=== PATIENT | female | born 1930 | race Caucasian/White ===

== ENCOUNTER 2017-08-15 00:01 | Inpatient (IN) | payer MEDICARE, MEDICAID ==
[2017-08-15] VITALS (32 sets, daily range): BP systolic 79–184; BP diastolic 25–89
[~2017-08-15] VITALS: Ht 172.7 cm; Wt 78.9 kg
[~2017-08-15 00:01] MED LIST: ACET650T11 PO; ATOR20TA PO; BISA10SU12 RC; BUSPAR PO; CALAZIME TOP; CALC1TAB50 PO; CHOL10005 PO; DILT240C88 PO; DIVA250T4 PO; DONE5TAB PO; ECON15CR2 TP; ESCI5TAB PO; FOLI1TAB16 PO; HYDR-3326 PO; IPRA3AMP IH; LEVA1.2528 IH; LEVE500T9 PO; LORA-258 PO; MAGN400O6 PO; NYST500P PO; ONDA4TAB5 PO; PANT40TA2 PO; POLY17PO4 PO; RIVA15TA2 PO; TAMS0.4C34 PO; VALS160T2 PO
[2017-08-15] MEDS ORDERED: MAGN400O6 PO (00:26)
[2017-08-15] MEDS ORDERED: MULT1TAB11 PO (00:26)
[2017-08-15] MEDS ORDERED: TRAM50TA2 PO (00:26)
[2017-08-15] MEDS ORDERED: BUSP10TA3 PO (00:26)
[2017-08-15] MEDS ORDERED: LEVE500T9 PO (00:26)
[2017-08-15] MEDS ORDERED: LORA-258 PO (00:26)
[2017-08-15] MEDS ORDERED: ACET-2154 PO (00:26)
[2017-08-15] MEDS ORDERED: IPRA0.2S6 PO (00:26)
[2017-08-15] MEDS ORDERED: CRAN425C6 PO (00:26)
[2017-08-15] MEDS ORDERED: ENOX40DI SQ (00:26)
[2017-08-15] MEDS ORDERED: FURO-151 PO (00:26)
[2017-08-15] MEDS ORDERED: DIGO125T PO (00:26)
[2017-08-15] MEDS ORDERED: DOCU100C36 PO (00:26)
[2017-08-15] MEDS ORDERED: POTA-88 PO (00:26)
[2017-08-15] MEDS ORDERED: PANT40TA2 PO (00:26)
[2017-08-15] MEDS: PROPOFOL 100 ML IV PRN ×3 (00:55→16:52)
[2017-08-15] MEDS ORDERED: ENALAPRILAT DIHYDRATE 1.25 MG/1 ML VIAL IV ONE (01:00)
[2017-08-15] MEDS ORDERED: ETOMIDATE 20 MG/10 ML VIAL IV ONE (01:00)
[2017-08-15] MEDS ORDERED: NITROGLYCERIN OINT 1 GM PACKET TP ONE (01:00)
[2017-08-15] MEDS ORDERED: PROPOFOL 100 ML ONE ×2 (01:06→05:01)
[2017-08-15 01:29] LABS: BASOPHILS # (AUTO) 0.1 K/uL (0.0-8.0); BASOPHILS % (AUTO) 1.1 % (0.0-2.0); EOSINOPHILS # (AUTO) 0.1 K/uL (0.0-0.7); EOSINOPHILS % (AUTO) 1.5 % (0.0-7.0); HEMATOCRIT 36.7 % (31.2-41.9); LYMPHOCYTES # (AUTO) 0.9 K/uL (20.0-40.0); LYMPHOCYTES % (AUTO) 9.6 % (20.5-51.5); MEAN CORPUSCULAR HEMOGLOBIN 27.3 uug (24.7-32.8); MEAN CORPUSCULAR HGB CONC 33 g/dL (32.3-35.6); MEAN CORPUSCULAR VOLUME 83.3 fL (75.5-95.3); MONOCYTES # (AUTO) 0.6 K/uL (2.0-10.0); MONOCYTES % (AUTO) 6.7 % (0.0-11.0); NEUTROPHILS # (AUTO) 7.4 K/uL (1.8-8.9); NEUTROPHILS % (AUTO) 81.1 % (38.5-71.5); PLATELET COUNT (AUTO) 323 K/uL (179-408); WHITE BLOOD COUNT (AUTO) 9.1 K/uL (3.8-11.8)
[2017-08-15 01:31] LABS: ABG BASE EXCESS 3.2 mmol/L; ABG HCO3 28.7 mmol/L; ABG PH 7.395 (7.350-7.450); ABG PO2 288.8 mmHg (75.0-100.0); ABG SITE RIGHT BRACHIAL; ABG TOTAL HEMOGLOBIN 11.1 G/dL (12.0-16.0); MetHb 0.3 % (0.0-1.5); O2Hb 98.5 % (94.0-97.0); VENT MODE VENT - A/C; VT, ABG 500 mL
[2017-08-15 01:31] LABS: CARBON DIOXIDE 34 mmol/L (21-32); CHLORIDE 102 mmol/L (98-107); GLUCOSE 148 mg/dL (74-106); POTASSIUM 4.4 mmol/L (3.5-5.1); UREA NITROGEN, BLOOD 14 mg/dL (7-18)
[2017-08-15 01:46] LABS: ALANINE AMINOTRANSFERASE 12 U/L (14-59); ALKALINE PHOSPHATASE 82 U/L (50-136); ASPARTATE AMINOTRANSFERASE 22 U/L (15-37); BILIRUBIN,DIRECT 0.1 mg/dL (0.0-0.2); BILIRUBIN,TOTAL 0.3 mg/dL (0.2-1.0); TOTAL PROTEIN, SERUM 7.9 g/dL (6.4-8.2)
[2017-08-15] MEDS ORDERED: NORMAL SALINE FLUSH 10 ML DISP.SYRIN IV PRN (04:00)
[2017-08-15] MEDS: methylPREDNISolone SOD SUCC 40 MG/ML VIAL IV SCH ×3 (04:20→20:39)
[2017-08-15] MEDS ORDERED: methylPREDNISolone SOD SUCC 40 MG/ML VIAL ONE (04:32)
[2017-08-15] MEDS: FUROSEMIDE 40 MG/4 ML VIAL IV SCH ×3 (05:51→20:44)
[2017-08-15] MEDS ORDERED: FUROSEMIDE 40 MG/4 ML VIAL ONE (05:55)
[2017-08-15] MEDS: NORMAL SALINE FLUSH 10 ML DISP.SYRIN IV SCH ×3 (06:00→21:35)
[2017-08-15 06:01] LABS: ABG BASE EXCESS 5.5 mmol/L; ABG HCO3 28.6 mmol/L; ABG PCO2 36.2 mmHg (35.0-45.0); ABG PH 7.515 (7.350-7.450); ABG PO2 138.2 mmHg (75.0-100.0); ABG SITE RIGHT RADIAL; ABG TOTAL HEMOGLOBIN 11.2 G/dL (12.0-16.0); COHb 0.8 % (0.5-1.5); MetHb 0.3 % (0.0-1.5); O2Hb 98.1 % (94.0-97.0); VENT MODE VENT - A/C; VT, ABG 500 mL
[2017-08-15 06:33] LABS: BASOPHILS % (AUTO) 0.3 % (0.0-2.0); EOSINOPHILS # (AUTO) 0.1 K/uL (0.0-0.7); EOSINOPHILS % (AUTO) 1.3 % (0.0-7.0); HEMATOCRIT 32.9 % (31.2-41.9); HEMOGLOBIN 10.9 g/dL (10.9-14.3); LYMPHOCYTES # (AUTO) 0.6 K/uL (20.0-40.0); LYMPHOCYTES % (AUTO) 5.6 % (20.5-51.5); MEAN CORPUSCULAR HEMOGLOBIN 27.1 uug (24.7-32.8); MEAN CORPUSCULAR HGB CONC 33 g/dL (32.3-35.6); MONOCYTES # (AUTO) 0.6 K/uL (2.0-10.0); MONOCYTES % (AUTO) 5.3 % (0.0-11.0); NEUTROPHILS # (AUTO) 9.5 K/uL (1.8-8.9); NEUTROPHILS % (AUTO) 87.5 % (38.5-71.5); PLATELET COUNT (AUTO) 267 K/uL (179-408); RED BLOOD CELL COUNT(AUTO) 4.02 MIL/uL (3.63-4.92); WHITE BLOOD COUNT (AUTO) 10.9 K/uL (3.8-11.8)
[2017-08-15 06:42] LABS: ALANINE AMINOTRANSFERASE 12 U/L (14-59); ALKALINE PHOSPHATASE 71 U/L (50-136); ASPARTATE AMINOTRANSFERASE 18 U/L (15-37); BILIRUBIN,TOTAL 0.5 mg/dL (0.2-1.0); CARBON DIOXIDE 27 mmol/L (21-32); CHLORIDE 103 mmol/L (98-107); CREATININE 0.9 mg/dL (0.6-1.3); GLUCOSE 120 mg/dL (74-106); MAGNESIUM 1.8 mg/dL (1.8-2.4); PHOSPHOROUS 3.3 mg/dL (2.5-4.9); POTASSIUM 4.4 mmol/L (3.5-5.1); TOTAL PROTEIN, SERUM 7.1 g/dL (6.4-8.2); UREA NITROGEN, BLOOD 15 mg/dL (7-18)
[2017-08-15] MEDS ORDERED: Z GUARD REMEDY PASTE 57 GM TUBE TOP PRN (06:45)
[2017-08-15] MEDS ORDERED: DIVALPROEX 250 MG TABLET.DR PO SCH (08:00)
[2017-08-15] MEDS ORDERED: HYDROCODONE/APAP 5-325MG TABLET PO PRN (08:00)
[2017-08-15] MEDS ORDERED: LEVALBUTEROL HCL 1.25 MG/0.5 ML NEB NEB PRN (08:00)
[2017-08-15] MEDS ORDERED: LORAZEPAM 0.5 MG TABLET PO PRN (08:00)
[2017-08-15] MEDS ORDERED: MAGNESIUM HYDROXIDE 30 ML LIQUID UDC PO PRN ×2 (08:00)
[2017-08-15] MEDS ORDERED: TRAMADOL HCL 50 MG TABLET PO PRN (08:00)
[2017-08-15] MEDS ORDERED: HOME MED MISCELLANEOUS XX SCH (08:00)
[2017-08-15] MEDS ORDERED: BISACODYL 10 MG SUPP.RECT RC PRN (08:00)
[2017-08-15] MEDS ORDERED: ONDANSETRON HCL 4 MG TABLET PO PRN (08:00)
[2017-08-15] MEDS ORDERED: ALBUTEROL SULFATE 2.5 MG/ 0.5 ML NEBU NEB PRN (08:30)
[2017-08-15] MEDS: PANTOPRAZOLE SODIUM 40 MG VIAL IV SCH (08:39)
[2017-08-15] MEDS ORDERED: NYSTATIN POWDER 15 GM BOTTLE TOP SCH (09:00)
[2017-08-15] MEDS ORDERED: LEVETIRACETAM 500 MG TABLET PO SCH (09:00)
[2017-08-15] MEDS: MULTIVITAMINS,THERAPEUTIC TABLET PO SCH (09:00)
[2017-08-15] MEDS: DOCUSATE SODIUM 100 MG CAPSULE PO SCH ×2 (09:00→20:40)
[2017-08-15] MEDS ORDERED: CALCIUM CARB/VITAMIN D 500MG-200UNITS TABLET PO SCH (09:00)
[2017-08-15] MEDS ORDERED: CHOLECALCIFEROL 1,000 UNIT TABLET PO SCH (09:00)
[2017-08-15] MEDS ORDERED: ESCITALOPRAM OXALATE 10 MG TABLET PO SCH (09:00)
[2017-08-15] MEDS ORDERED: FOLIC ACID 1 MG TABLET PO SCH (09:00)
[2017-08-15] MEDS: busPIRone 10 MG TABLET PO SCH ×2 (09:00→16:48)
[2017-08-15] MEDS ORDERED: DILTIAZEM HCL CD 240 MG CAP.SR.24H PO SCH (09:00)
[2017-08-15] MEDS ORDERED: ENOXAPARIN SODIUM 40 MG/0.4 ML DISP.SYRIN SQ SCH (09:00)
[2017-08-15] MEDS ORDERED: busPIRone 10 MG TABLET PO SCH (09:00)
[2017-08-15] MEDS ORDERED: ACETAMINOPHEN 325 MG TABLET PO SCH (09:00)
[2017-08-15] MEDS: Z GUARD REMEDY PASTE 57 GM TUBE TOP SCH ×2 (09:57→20:40)
[2017-08-15] MEDS: ENOXAPARIN SODIUM 40 MG/0.4 ML DISP.SYRIN SQ SCH (10:00)
[2017-08-15] MEDS: LEVETIRACETAM IV SCH ×2 (10:01→20:39)
[2017-08-15] MEDS: NORMAL SALINE IV SCH ×2 (10:01→20:39)
[2017-08-15] MEDS ORDERED: VALPROATE SODIUM IV SCH (11:00)
[2017-08-15] MEDS ORDERED: NORMAL SALINE IV SCH (11:00)
[2017-08-15] MEDS ORDERED: ETOMIDATE 20 MG/10 ML VIAL MC ONE (11:08)
[2017-08-15] MEDS ORDERED: IPRATROPIUM BROMIDE 0.5 MG/2.5 ML NEBU NEB SCH (13:30)
[2017-08-15] MEDS: IPRATROPIUM BROMIDE 0.5 MG/2.5 ML NEBU NEB SCH (19:27)
[2017-08-15] MEDS: DIGOXIN 125 MCG TABLET PO SCH (20:41)
[2017-08-15] MEDS ORDERED: TAMSULOSIN HCL 0.4 MG CAP.SR.24H PO SCH (21:00)
[2017-08-15] MEDS ORDERED: ATORVASTATIN 20 MG TABLET PO SCH (21:00)
[2017-08-15] MEDS ORDERED: DONEPEZIL 5 MG TABLET PO SCH (21:00)
[2017-08-15] MEDS ORDERED: MIRALAX 17 GM POWD.PACK PO SCH (21:00)
[2017-08-15] MEDS ORDERED: IV NORMAL SALINE 250 ML IV PRN (23:15)
[2017-08-16] VITALS (24 sets, daily range): BP systolic 91–168; BP diastolic 42–87
[2017-08-16] MEDS: IPRATROPIUM BROMIDE 0.5 MG/2.5 ML NEBU NEB SCH ×4 (00:58→19:10)
[2017-08-16 05:23] LABS: CARBON DIOXIDE 32 mmol/L (21-32); CHLORIDE 102 mmol/L (98-107); CREATININE 1.3 mg/dL (0.6-1.3); GLUCOSE 128 mg/dL (74-106); MAGNESIUM 1.8 mg/dL (1.8-2.4); UREA NITROGEN, BLOOD 24 mg/dL (7-18)
[2017-08-16 05:26] LABS: BASOPHILS % (AUTO) 0.4 % (0.0-2.0); EOSINOPHILS % (AUTO) 0.1 % (0.0-7.0); HEMATOCRIT 35.7 % (31.2-41.9); HEMOGLOBIN 11.7 g/dL (10.9-14.3); LYMPHOCYTES # (AUTO) 0.9 K/uL (20.0-40.0); MEAN CORPUSCULAR HGB CONC 33 g/dL (32.3-35.6); MEAN CORPUSCULAR VOLUME 82.6 fL (75.5-95.3); MONOCYTES # (AUTO) 0.6 K/uL (2.0-10.0); MONOCYTES % (AUTO) 6.6 % (0.0-11.0); NEUTROPHILS # (AUTO) 7.7 K/uL (1.8-8.9); NEUTROPHILS % (AUTO) 82.9 % (38.5-71.5); PLATELET COUNT (AUTO) 318 K/uL (179-408); RED BLOOD CELL COUNT(AUTO) 4.32 MIL/uL (3.63-4.92); WHITE BLOOD COUNT (AUTO) 9.2 K/uL (3.8-11.8)
[2017-08-16] MEDS: NORMAL SALINE FLUSH 10 ML DISP.SYRIN IV SCH ×3 (05:40→21:42)
[2017-08-16] MEDS: PROPOFOL 100 ML IV PRN (06:37)
[2017-08-16] MEDS: PANTOPRAZOLE SODIUM 40 MG VIAL IV SCH (06:50)
[2017-08-16] MEDS: DOCUSATE SODIUM 100 MG CAPSULE PO SCH ×2 (08:19→20:22)
[2017-08-16] MEDS: busPIRone 10 MG TABLET PO SCH ×2 (08:19→16:08)
[2017-08-16] MEDS: DIGOXIN 125 MCG TABLET PO SCH (08:20)
[2017-08-16] MEDS: MULTIVITAMINS,THERAPEUTIC TABLET PO SCH (08:21)
[2017-08-16] MEDS: ECONAZOLE CREAM 30 GM TUBE TOP SCH (08:22)
[2017-08-16] MEDS: Z GUARD REMEDY PASTE 57 GM TUBE TOP SCH ×2 (08:22→20:24)
[2017-08-16] MEDS: methylPREDNISolone SOD SUCC 40 MG/ML VIAL IV SCH ×3 (08:23→20:22)
[2017-08-16] MEDS: FUROSEMIDE 40 MG/4 ML VIAL IV SCH ×3 (08:23→20:22)
[2017-08-16] MEDS: ENOXAPARIN SODIUM 40 MG/0.4 ML DISP.SYRIN SQ SCH (08:25)
[2017-08-16] MEDS: LEVETIRACETAM IV SCH ×2 (08:39→11:36)
[2017-08-16] MEDS: NORMAL SALINE IV SCH ×2 (08:39→11:36)
[2017-08-16 09:19] LABS: ABG BASE EXCESS 4.2 mmol/L; ABG HCO3 28.2 mmol/L; ABG PH 7.466 (7.350-7.450); ABG PO2 105.7 mmHg (75.0-100.0); ABG SITE RIGHT RADIAL; ABG TOTAL HEMOGLOBIN 11.3 G/dL (12.0-16.0); CPAP,BG 8 cmH20; MetHb 0.3 % (0.0-1.5); O2Hb 96.8 % (94.0-97.0); VENT MODE CPAP
[2017-08-16] MEDS: ALBUTEROL SULFATE 2.5 MG/3 ML NEBU NEB PRN (13:28)
[2017-08-16] MEDS: ACETAMINOPHEN 325 MG TABLET PO PRN (18:09)
[2017-08-16] MEDS: LORAZEPAM 0.5 MG TABLET PO PRN (18:43)
[2017-08-16] MEDS: TRAMADOL HCL 50 MG TABLET PO PRN (20:23)
[2017-08-16] MEDS: LEVETIRACETAM 500 MG TABLET PO SCH (20:23)
[2017-08-17] VITALS (16 sets, daily range): BP systolic 99–120; BP diastolic 48–77
[2017-08-17] MEDS: IPRATROPIUM BROMIDE 0.5 MG/2.5 ML NEBU NEB SCH ×4 (00:41→19:51)
[2017-08-17] MEDS: LORAZEPAM 0.5 MG TABLET PO PRN ×3 (01:50→17:36)
[2017-08-17] MEDS: TRAMADOL HCL 50 MG TABLET PO PRN ×2 (01:51→11:39)
[2017-08-17] MEDS: PANTOPRAZOLE SODIUM 40 MG VIAL IV SCH (06:03)
[2017-08-17] MEDS: NORMAL SALINE FLUSH 10 ML DISP.SYRIN IV SCH ×3 (06:03→22:00)
[2017-08-17] MEDS: ALBUTEROL SULFATE 2.5 MG/3 ML NEBU NEB PRN (06:19)
[2017-08-17] MEDS: ENOXAPARIN SODIUM 40 MG/0.4 ML DISP.SYRIN SQ SCH (08:46)
[2017-08-17] MEDS: FUROSEMIDE 40 MG/4 ML VIAL IV SCH (08:46)
[2017-08-17] MEDS: LEVETIRACETAM 500 MG TABLET PO SCH ×2 (08:47→20:53)
[2017-08-17] MEDS: MULTIVITAMINS,THERAPEUTIC TABLET PO SCH (08:47)
[2017-08-17] MEDS: DOCUSATE SODIUM 100 MG CAPSULE PO SCH ×2 (08:47→20:53)
[2017-08-17] MEDS: DIGOXIN 125 MCG TABLET PO SCH (08:47)
[2017-08-17] MEDS: ECONAZOLE CREAM 30 GM TUBE TOP SCH (08:50)
[2017-08-17] MEDS: Z GUARD REMEDY PASTE 57 GM TUBE TOP SCH ×2 (08:50→20:53)
[2017-08-17] MEDS: methylPREDNISolone SOD SUCC 40 MG/ML VIAL IV SCH ×2 (08:56→20:53)
[2017-08-17] MEDS: busPIRone 10 MG TABLET PO SCH ×2 (08:57→17:20)
[2017-08-17] MEDS: RIVAROXABAN 15 MG TABLET PO SCH (17:21)
[2017-08-17] MEDS: HYDROCODONE/APAP 5-325MG TABLET PO PRN (18:11)
[2017-08-17] MEDS: ALBUTEROL SULFATE 2.5 MG/3 ML NEBU NEB SCH (19:51)
[2017-08-18] VITALS: BP 113/59
[2017-08-18 04:00] VITALS: BP 121/58
[2017-08-18] MEDS: NORMAL SALINE FLUSH 10 ML DISP.SYRIN IV SCH ×3 (05:54→21:06)
[2017-08-18] MEDS: PANTOPRAZOLE SODIUM 40 MG TABLET.DR PO SCH (06:00)
[2017-08-18 06:32] LABS: BASOPHILS % (AUTO) 0.2 % (0.0-2.0); EOSINOPHILS % (AUTO) 0.1 % (0.0-7.0); HEMATOCRIT 33.4 % (31.2-41.9); HEMOGLOBIN 10.9 g/dL (10.9-14.3); LYMPHOCYTES # (AUTO) 0.8 K/uL (20.0-40.0); LYMPHOCYTES % (AUTO) 9.8 % (20.5-51.5); MEAN CORPUSCULAR HEMOGLOBIN 26.8 uug (24.7-32.8); MEAN CORPUSCULAR HGB CONC 33 g/dL (32.3-35.6); MEAN CORPUSCULAR VOLUME 82.2 fL (75.5-95.3); MONOCYTES # (AUTO) 0.5 K/uL (2.0-10.0); MONOCYTES % (AUTO) 6.6 % (0.0-11.0); NEUTROPHILS # (AUTO) 6.4 K/uL (1.8-8.9); NEUTROPHILS % (AUTO) 83.3 % (38.5-71.5); PLATELET COUNT (AUTO) 255 K/uL (179-408); RED BLOOD CELL COUNT(AUTO) 4.06 MIL/uL (3.63-4.92); WHITE BLOOD COUNT (AUTO) 7.7 K/uL (3.8-11.8)
[2017-08-18 06:48] LABS: ALANINE AMINOTRANSFERASE 9 U/L (14-59); ALKALINE PHOSPHATASE 78 U/L (50-136); ASPARTATE AMINOTRANSFERASE 15 U/L (15-37); BILIRUBIN,TOTAL 0.3 mg/dL (0.2-1.0); CARBON DIOXIDE 36 mmol/L (21-32); CHLORIDE 98 mmol/L (98-107); CREATININE 0.8 mg/dL (0.6-1.3); GLUCOSE 105 mg/dL (74-106); MAGNESIUM 1.9 mg/dL (1.8-2.4); PHOSPHOROUS 2.2 mg/dL (2.5-4.9); POTASSIUM 4.7 mmol/L (3.5-5.1); TOTAL PROTEIN, SERUM 7.1 g/dL (6.4-8.2); UREA NITROGEN, BLOOD 25 mg/dL (7-18)
[2017-08-18] MEDS: IPRATROPIUM BROMIDE 0.5 MG/2.5 ML NEBU NEB SCH ×3 (07:23→19:39)
[2017-08-18] MEDS: ALBUTEROL SULFATE 2.5 MG/3 ML NEBU NEB SCH ×3 (07:23→19:39)
[2017-08-18] MEDS: DOCUSATE SODIUM 100 MG CAPSULE PO SCH ×2 (08:14→20:10)
[2017-08-18] MEDS: busPIRone 10 MG TABLET PO SCH ×2 (08:14→16:12)
[2017-08-18] MEDS: LEVETIRACETAM 500 MG TABLET PO SCH ×2 (08:14→20:10)
[2017-08-18] MEDS: MULTIVITAMINS,THERAPEUTIC TABLET PO SCH (08:14)
[2017-08-18] MEDS: FUROSEMIDE 40 MG/4 ML VIAL IV SCH (08:15)
[2017-08-18] MEDS: ECONAZOLE CREAM 30 GM TUBE TOP SCH (08:15)
[2017-08-18] MEDS: methylPREDNISolone SOD SUCC 40 MG/ML VIAL IV SCH ×2 (08:15→20:10)
[2017-08-18] MEDS: DIGOXIN 125 MCG TABLET PO SCH (08:16)
[2017-08-18] MEDS: HYDROCODONE/APAP 5-325MG TABLET PO PRN ×2 (08:25→17:59)
[2017-08-18] MEDS: Z GUARD REMEDY PASTE 57 GM TUBE TOP SCH ×2 (08:26→20:10)
[2017-08-18] MEDS: LORAZEPAM 0.5 MG TABLET PO PRN ×2 (09:40→21:06)
[2017-08-18] MEDS: ONDANSETRON 4 MG/2 ML VIAL IV PRN ×2 (09:54→17:58)
[2017-08-18 11:21] VITALS: BP 108/46
[2017-08-18 15:56] VITALS: BP 100/44
[2017-08-18] MEDS ORDERED: NEUTRA PHOS PACKET PO ONE (16:30)
[2017-08-18] MEDS: RIVAROXABAN 15 MG TABLET PO SCH (17:17)
[2017-08-18 19:38] VITALS: BP 118/53
[2017-08-19 00:07] VITALS: BP 124/53
[2017-08-19] MEDS: IPRATROPIUM BROMIDE 0.5 MG/2.5 ML NEBU NEB PRN ×4 (00:15→23:25)
[2017-08-19] MEDS: ALBUTEROL SULFATE 2.5 MG/3 ML NEBU NEB PRN ×4 (00:15→23:26)
[2017-08-19 04:51] VITALS: BP 118/58
[2017-08-19] MEDS: NORMAL SALINE FLUSH 10 ML DISP.SYRIN IV SCH ×3 (06:06→20:17)
[2017-08-19] MEDS: PANTOPRAZOLE SODIUM 40 MG TABLET.DR PO SCH (06:11)
[2017-08-19 06:55] LABS: CHLORIDE 96 mmol/L (98-107); CREATININE 0.8 mg/dL (0.6-1.3); GLUCOSE 107 mg/dL (74-106); PHOSPHOROUS 2.7 mg/dL (2.5-4.9); POTASSIUM 4.8 mmol/L (3.5-5.1); UREA NITROGEN, BLOOD 27 mg/dL (7-18)
[2017-08-19 07:18] LABS: CARBON DIOXIDE 37 mmol/L (21-32)
[2017-08-19] MEDS: IPRATROPIUM BROMIDE 0.5 MG/2.5 ML NEBU NEB SCH ×3 (07:30→19:25)
[2017-08-19] MEDS: ALBUTEROL SULFATE 2.5 MG/3 ML NEBU NEB SCH ×3 (07:30→19:25)
[2017-08-19] MEDS: MULTIVITAMINS,THERAPEUTIC TABLET PO SCH (08:25)
[2017-08-19] MEDS: LEVETIRACETAM 500 MG TABLET PO SCH ×2 (08:26→20:06)
[2017-08-19] MEDS: FUROSEMIDE 40 MG/4 ML VIAL IV SCH (08:26)
[2017-08-19] MEDS: DOCUSATE SODIUM 100 MG CAPSULE PO SCH ×2 (08:26→20:06)
[2017-08-19] MEDS: methylPREDNISolone SOD SUCC 40 MG/ML VIAL IV SCH ×2 (08:26→20:17)
[2017-08-19] MEDS: busPIRone 10 MG TABLET PO SCH ×2 (08:26→16:20)
[2017-08-19] MEDS: DIGOXIN 125 MCG TABLET PO SCH (08:27)
[2017-08-19] MEDS: Z GUARD REMEDY PASTE 57 GM TUBE TOP SCH ×2 (08:27→20:06)
[2017-08-19] MEDS: HYDROCODONE/APAP 5-325MG TABLET PO PRN ×2 (08:27→23:33)
[2017-08-19] MEDS: ECONAZOLE CREAM 30 GM TUBE TOP SCH (08:28)
[2017-08-19 11:07] VITALS: BP 109/45
[2017-08-19] MEDS: LORAZEPAM 0.5 MG TABLET PO PRN ×2 (15:42→20:07)
[2017-08-19] MEDS: ACETAMINOPHEN 325 MG TABLET PO PRN (15:42)
[2017-08-19 15:54] VITALS: BP 126/61
[2017-08-19] MEDS: FUROSEMIDE 40 MG TABLET PO SCH (16:20)
[2017-08-19] MEDS: RIVAROXABAN 15 MG TABLET PO SCH (17:13)
[2017-08-19 20:03] VITALS: BP 112/50
[2017-08-20] VITALS: BP 108/57
[2017-08-20] MEDS: LORAZEPAM 0.5 MG TABLET PO PRN ×3 (00:08→16:07)
[2017-08-20] MEDS: ACETAMINOPHEN 325 MG TABLET PO PRN (02:15)
[2017-08-20 04:00] VITALS: BP 131/64
[2017-08-20] MEDS: ALBUTEROL SULFATE 2.5 MG/3 ML NEBU NEB PRN (05:14)
[2017-08-20] MEDS: IPRATROPIUM BROMIDE 0.5 MG/2.5 ML NEBU NEB PRN ×2 (05:14→11:34)
[2017-08-20] MEDS: NORMAL SALINE FLUSH 10 ML DISP.SYRIN IV SCH ×2 (05:45→13:19)
[2017-08-20] MEDS: PANTOPRAZOLE SODIUM 40 MG TABLET.DR PO SCH (06:06)
[2017-08-20] MEDS: ALBUTEROL SULFATE 2.5 MG/3 ML NEBU NEB SCH ×2 (07:23→13:44)
[2017-08-20] MEDS: IPRATROPIUM BROMIDE 0.5 MG/2.5 ML NEBU NEB SCH ×2 (07:23→13:44)
[2017-08-20] MEDS: DOCUSATE SODIUM 100 MG CAPSULE PO SCH (08:00)
[2017-08-20] MEDS: FUROSEMIDE 40 MG TABLET PO SCH ×2 (08:00→16:07)
[2017-08-20] MEDS: busPIRone 10 MG TABLET PO SCH ×2 (08:00→16:07)
[2017-08-20] MEDS: MULTIVITAMINS,THERAPEUTIC TABLET PO SCH (08:00)
[2017-08-20] MEDS: DIGOXIN 125 MCG TABLET PO SCH (08:00)
[2017-08-20] MEDS: Z GUARD REMEDY PASTE 57 GM TUBE TOP SCH (08:01)
[2017-08-20] MEDS: methylPREDNISolone SOD SUCC 40 MG/ML VIAL IV SCH (08:01)
[2017-08-20] MEDS: ECONAZOLE CREAM 30 GM TUBE TOP SCH (08:01)
[2017-08-20] MEDS: LEVETIRACETAM 500 MG TABLET PO SCH (08:01)
[2017-08-20] MEDS ORDERED: FUROSEMIDE 40 MG TABLET PO SCH (09:00)
[2017-08-20 11:15] VITALS: BP 116/53
[2017-08-20] MEDS ORDERED: ALBU2.5V7 NEB ×2 (11:24)
[2017-08-20] MEDS ORDERED: IPRA0.2S6 NEB ×2 (11:24)
[2017-08-20] MEDS ORDERED: METH4TAB3 PO (11:24)
[2017-08-20 15:04] VITALS: BP 121/54
[2017-08-20] MEDS: ONDANSETRON 4 MG/2 ML VIAL IV PRN (16:19)
[2017-08-20] MEDS ORDERED: predniSONE 20 MG TABLET PO SCH (18:00)
== END 2017-08-20 16:30 | DRG 208 ==
LOC: ER 00:05 → CCU 02:23 → TELE 08-17 17:00
PROVIDERS: ADMIT Internal Medicine; ATTEND Internal Medicine
PROC: 5A1935Z Respiratory Ventilation, Less than 24 Consecutive Hours (ICD-10-PCS; principal; 2017-08-15)
PROC: 0BH17EZ Insertion of Endotracheal Airway into Trachea, Via Natural or Artificial Opening (ICD-10-PCS; 2017-08-15)
PROC: 05H533Z Insertion of Infusion Device into Right Subclavian Vein, Percutaneous Approach (ICD-10-PCS; 2017-08-16)
DX: J96.21 Acute and chronic respiratory failure with hypoxia (principal); I50.33 Acute on chronic diastolic (congestive) heart failure; J44.9 Chronic obstructive pulmonary disease, unspecified; G40.909 Epilepsy, unspecified, not intractable, without status epilepticus; I48.2 Chronic atrial fibrillation; D64.9 Anemia, unspecified; I25.10 Atherosclerotic heart disease of native coronary artery without angina pectoris; F31.9 Bipolar disorder, unspecified; E78.5 Hyperlipidemia, unspecified; I13.0 Hypertensive heart and chronic kidney disease with heart failure and stage 1 through stage 4 chronic kidney disease, or unspecified chronic kidney disease; J96.22 Acute and chronic respiratory failure with hypercapnia; N18.9 Chronic kidney disease, unspecified; Z95.1 Presence of aortocoronary bypass graft; K21.9 Gastro-esophageal reflux disease without esophagitis; Z79.01 Long term (current) use of anticoagulants; Z79.899 Other long term (current) drug therapy; Z80.0 Family history of malignant neoplasm of digestive organs; Z80.1 Family history of malignant neoplasm of trachea, bronchus and lung; Z87.891 Personal history of nicotine dependence; Z88.5 Allergy status to narcotic agent
CPT/HCPCS: 36415; 36600; 70030-TC; 71045; 83605; 83735; 84100; 85025; 87040; 87070; 87086; 92526; 92610; 93005; 94002; 94003; 94640; 94664; A4663; C9113; J1650; J1940; J1953; J2405; J2920; J3490; J3590; J7050; J7060

== ENCOUNTER 2017-10-01 19:26 | Inpatient (IN) | payer MEDICARE, MEDICAID ==
[~2017-10-01] VITALS: Ht 162.6 cm; Wt 72.1 kg
[~2017-10-01 19:26] MED LIST changes: +ACET-2154 PO; +ALBU2.5V7 NEB; -ATOR20TA PO; -BISA10SU12 RC; +BUSP10TA3 PO; -BUSPAR PO; -CALAZIME TOP; -CALC1TAB50 PO; -CHOL10005 PO; +DIGO125T PO; -DILT240C88 PO; -DIVA250T4 PO; +DOCU100C36 PO; -DONE5TAB PO; +ENOX40DI SQ; -ESCI5TAB PO; -FOLI1TAB16 PO; +FURO-151 PO; -HYDR-3326 PO; +IPRA0.2S6 NEB; +IPRA0.2S6 PO; -IPRA3AMP IH; -LEVA1.2528 IH; +METH4TAB3 PO; +MULT1TAB11 PO; -NYST500P PO; -ONDA4TAB5 PO; -POLY17PO4 PO; +POTA-88 PO; -TAMS0.4C34 PO; +TRAM50TA2 PO; -VALS160T2 PO
[2017-10-01] MEDS ORDERED: IV NORMAL SALINE 500 ML BAG IV ONE (19:30)
[2017-10-01 20:29] LABS: BASOPHILS # (AUTO) 0.1 K/uL (0.0-8.0); EOSINOPHILS # (AUTO) 0.1 K/uL (0.0-0.7); EOSINOPHILS % (AUTO) 1.4 % (0.0-7.0); HEMATOCRIT 35.9 % (31.2-41.9); HEMOGLOBIN 11.6 g/dL (10.9-14.3); LYMPHOCYTES # (AUTO) 0.9 K/uL (20.0-40.0); LYMPHOCYTES % (AUTO) 9.1 % (20.5-51.5); MEAN CORPUSCULAR HEMOGLOBIN 26.3 uug (24.7-32.8); MEAN CORPUSCULAR HGB CONC 32 g/dL (32.3-35.6); MEAN CORPUSCULAR VOLUME 81.5 fL (75.5-95.3); MONOCYTES # (AUTO) 0.7 K/uL (2.0-10.0); MONOCYTES % (AUTO) 6.7 % (0.0-11.0); NEUTROPHILS # (AUTO) 8.4 K/uL (1.8-8.9); NEUTROPHILS % (AUTO) 81.8 % (38.5-71.5); PLATELET COUNT (AUTO) 366 K/uL (179-408); RED BLOOD CELL COUNT(AUTO) 4.41 MIL/uL (3.63-4.92); WHITE BLOOD COUNT (AUTO) 10.2 K/uL (3.8-11.8)
[2017-10-01] MEDS ORDERED: AZITHROMYCIN IV 500 MG in IV DEXTROSE 5% 250 ML IV ONE (20:30)
[2017-10-01] MEDS ORDERED: ZINC220C8 PO (20:33)
[2017-10-01] MEDS ORDERED: ONDA4TAB5 PO (20:33)
[2017-10-01] MEDS ORDERED: PROSTAT PO (20:33)
[2017-10-01] MEDS ORDERED: ALBU2.5V13 IH (20:33)
[2017-10-01] MEDS ORDERED: MAGN400O6 PO (20:33)
[2017-10-01] MEDS ORDERED: LACT1CAP61 PO (20:33)
[2017-10-01] MEDS ORDERED: CRAN450T9 PO (20:33)
[2017-10-01] MEDS ORDERED: DOCU-141 PO (20:33)
[2017-10-01] MEDS ORDERED: MULT-213 PO (20:33)
[2017-10-01] MEDS ORDERED: HYDR-3326 PO (20:33)
[2017-10-01] MEDS ORDERED: ASCO500C18 PO (20:33)
[2017-10-01] MEDS ORDERED: LEVE500T9 PO (20:33)
[2017-10-01] MEDS ORDERED: RIVA10TA PO (20:33)
[2017-10-01] MEDS ORDERED: BISA-79 PO (20:33)
[2017-10-01 20:46] LABS: *BLOOD, URINE 1+ (NEGATIVE); *CLARITY,URINE CLOUDY (CLEAR); *COLOR,URINE YELLOW (YELLOW); *KETONES,URINE TRACE (NEGATIVE); *UROBILINOGEN,URINE 0.2 E.U./dl (NORMAL); LEUKOCYTE ESTERASE ,URINE 3+ (NEGATIVE); NITRITE, URINE POSITIVE (NEGATIVE); PH,URINE 8.5 (5.0-8.0); UGLUCOSE NEGATIVE (NEGATIVE)
[2017-10-01] MEDS ORDERED: PIPERACILLIN/TAZO 4.5 GM VIAL IV ONE (20:46)
[2017-10-01 20:47] LABS: *BILIRUBIN,URIN 1+ (NEGATIVE); *PROTEIN,URINE 3+ (NEGATIVE)
[2017-10-01 20:51] LABS: BACTERIA,URINE MODERATE /HPF (NONE SEEN); SQUAMOUS EPITHELIAL CELL,UR FEW /HPF (NONE SEEN); WBC,URINE 50-80 /HPF (0-3)
[2017-10-01 20:53] LABS: CARBON DIOXIDE 35 mmol/L (21-32); CHLORIDE 99 mmol/L (98-107); CREATININE 0.8 mg/dL (0.6-1.3); GLUCOSE 120 mg/dL (74-106); UREA NITROGEN, BLOOD 10 mg/dL (7-18)
[2017-10-01 21:03] LABS: ALANINE AMINOTRANSFERASE 12 U/L (14-59); ALKALINE PHOSPHATASE 85 U/L (50-136); ASPARTATE AMINOTRANSFERASE 17 U/L (15-37); BILIRUBIN,DIRECT 0.1 mg/dL (0.0-0.2); BILIRUBIN,TOTAL 0.4 mg/dL (0.2-1.0); TOTAL PROTEIN, SERUM 7.1 g/dL (6.4-8.2)
[2017-10-01] MEDS ORDERED: AZITHROMYCIN 500 MG VIAL IV ONE (21:09)
[2017-10-01] MEDS ORDERED: FUROSEMIDE 20 MG/2 ML VIAL IV ONE (21:15)
[2017-10-01] MEDS ORDERED: FUROSEMIDE 40 MG/4 ML VIAL ONE (21:27)
[2017-10-01] MEDS ORDERED: PIPERACILLIN SODIUM/TAZOBACTAM 4.5 G in IV DEXTROSE 5% 50 ML IV SCH (22:00)
[2017-10-01 22:30] VITALS: BP 130/74
[2017-10-01] MEDS ORDERED: IV D5 1/2 NS 1000 ML 1,000 ML IV PRN (23:00)
[2017-10-01] MEDS ORDERED: IPRATROPIUM BROMIDE 0.5 MG/2.5 ML NEBU NEB PRN (23:15)
[2017-10-01] MEDS ORDERED: ALBUTEROL SULFATE 2.5 MG/3 ML NEBU NEB PRN (23:15)
[2017-10-01] MEDS ORDERED: LEVETIRACETAM 500 MG/5 ML LIQUID UDC NG ONE (23:45)
[2017-10-02] MEDS ORDERED: PIPERACILLIN/TAZO 2.25 GM VIAL ONE (01:57)
[2017-10-02] MEDS: PIPERACILLIN/TAZOBACTAM/D5W 2.25 G in PREMIXED 1 EACH IV SCH ×4 (02:26→20:20)
[2017-10-02 04:00] VITALS: BP 101/44
[2017-10-02 06:55] LABS: BASOPHILS # (AUTO) 0.1 K/uL (0.0-8.0); BASOPHILS % (AUTO) 0.7 % (0.0-2.0); EOSINOPHILS # (AUTO) 0.2 K/uL (0.0-0.7); EOSINOPHILS % (AUTO) 2.4 % (0.0-7.0); HEMATOCRIT 33.7 % (31.2-41.9); LYMPHOCYTES # (AUTO) 0.4 K/uL (20.0-40.0); LYMPHOCYTES % (AUTO) 3.9 % (20.5-51.5); MEAN CORPUSCULAR HEMOGLOBIN 26.6 uug (24.7-32.8); MEAN CORPUSCULAR HGB CONC 33 g/dL (32.3-35.6); MEAN CORPUSCULAR VOLUME 81.4 fL (75.5-95.3); MONOCYTES # (AUTO) 0.7 K/uL (2.0-10.0); MONOCYTES % (AUTO) 6.8 % (0.0-11.0); NEUTROPHILS # (AUTO) 8.6 K/uL (1.8-8.9); NEUTROPHILS % (AUTO) 86.2 % (38.5-71.5); PLATELET COUNT (AUTO) 328 K/uL (179-408); RED BLOOD CELL COUNT(AUTO) 4.14 MIL/uL (3.63-4.92); WHITE BLOOD COUNT (AUTO) 9.9 K/uL (3.8-11.8)
[2017-10-02 06:57] LABS: ALANINE AMINOTRANSFERASE 10 U/L (14-59); ALKALINE PHOSPHATASE 78 U/L (50-136); ASPARTATE AMINOTRANSFERASE 16 U/L (15-37); BILIRUBIN,TOTAL 0.4 mg/dL (0.2-1.0); CHLORIDE 98 mmol/L (98-107); CREATININE 0.7 mg/dL (0.6-1.3); GLUCOSE 98 mg/dL (74-106); MAGNESIUM 1.6 mg/dL (1.8-2.4); PHOSPHOROUS 3.9 mg/dL (2.5-4.9); POTASSIUM 3.2 mmol/L (3.5-5.1); TOTAL PROTEIN, SERUM 6.7 g/dL (6.4-8.2); UREA NITROGEN, BLOOD 9 mg/dL (7-18)
[2017-10-02 07:03] LABS: CARBON DIOXIDE 40 mmol/L (21-32)
[2017-10-02] MEDS ORDERED: POTASSIUM CHLORIDE 50 ML IV SCH (08:15)
[2017-10-02] MEDS ORDERED: MAGNESIUM SULFATE/D5W 100 ML IV SCH (08:15)
[2017-10-02] MEDS ORDERED: POTASSIUM CHLORIDE 20 MEQ TAB.PRT.SR PO ONE (08:30)
[2017-10-02] MEDS ORDERED: POTASSIUM CHLORIDE 20 MEQ POWDER PACKET NG ONE (08:30)
[2017-10-02] MEDS ORDERED: BISACODYL 5 MG TABLET.DR PO PRN (08:30)
[2017-10-02] MEDS ORDERED: ALBUTEROL SULFATE 2.5 MG/ 0.5 ML NEBU IH PRN (08:30)
[2017-10-02] MEDS ORDERED: ONDANSETRON HCL 4 MG TABLET PO PRN (08:30)
[2017-10-02] MEDS ORDERED: MAGNESIUM HYDROXIDE 30 ML LIQUID UDC PO PRN (08:30)
[2017-10-02] MEDS ORDERED: IPRATROPIUM BROMIDE 0.5 MG/2.5 ML NEBU NEB PRN (08:45)
[2017-10-02] MEDS ORDERED: LEVETIRACETAM 500 MG/5 ML LIQUID UDC NG SCH (09:00)
[2017-10-02] MEDS ORDERED: CRANBERRY FRUIT 425 MG PO SCH (09:00)
[2017-10-02] MEDS: Z GUARD REMEDY PASTE 57 GM TUBE TOP SCH ×2 (09:18→20:18)
[2017-10-02] MEDS: ASCORBIC ACID 500 MG TABLET PO SCH (09:22)
[2017-10-02] MEDS: ZINC SULFATE 220 MG CAPSULE PO SCH (09:22)
[2017-10-02] MEDS: LEVETIRACETAM 500 MG TABLET PO SCH ×2 (09:22→20:17)
[2017-10-02] MEDS: ACIDOPHILUS/BULGARICUS CHEW TAB PO SCH ×2 (09:22→16:35)
[2017-10-02] MEDS: MULTIVIT, IRON, MIN NO. 8, FA TABLET PO SCH (09:22)
[2017-10-02] MEDS: ACETAMINOPHEN 325 MG TABLET PO SCH ×4 (09:23→20:24)
[2017-10-02] MEDS: DOCUSATE SODIUM 100 MG CAPSULE PO SCH (09:23)
[2017-10-02] MEDS: DIGOXIN 125 MCG TABLET PO SCH (09:25)
[2017-10-02] MEDS: PANTOPRAZOLE SODIUM 40 MG TABLET.DR PO SCH (09:32)
[2017-10-02] MEDS: PROTEIN SUPPLEMENT (PROSTAT) 30 ML LIQUID PO SCH (09:33)
[2017-10-02 11:00] VITALS: BP 119/42
[2017-10-02] MEDS ORDERED: POTASSIUM CHLORIDE 10 MEQ in IV NORMAL SALINE 50 ML IV SCH (11:00)
[2017-10-02 15:02] VITALS: BP 108/56
[2017-10-02] MEDS: ALBUTEROL SULFATE 2.5 MG/3 ML NEBU NEB SCH ×2 (15:07→19:13)
[2017-10-02] MEDS: IPRATROPIUM BROMIDE 0.5 MG/2.5 ML NEBU NEB SCH ×2 (15:08→19:13)
[2017-10-02] MEDS: RIVAROXABAN 15 MG TABLET PO SCH (17:17)
[2017-10-02] MEDS ORDERED: RIVAROXABAN 10 MG TABLET PO SCH (18:00)
[2017-10-02 20:17] VITALS: BP 140/74
[2017-10-02] MEDS: CLOTRIMAZOLE 1% CREAM 30 GM TUBE TOP SCH (20:17)
[2017-10-03 00:08] VITALS: BP 119/68
[2017-10-03] MEDS ORDERED: VANCOMYCIN IV 200 ML ONE (00:16)
[2017-10-03] MEDS ORDERED: MEROPENEM 500 MG VIAL IV ONE (00:16)
[2017-10-03] MEDS: MEROPENEM 0.5 G in IV NORMAL SALINE 50 ML IV SCH ×4 (00:40→21:45)
[2017-10-03] MEDS: VANCOMYCIN IV 1 G in PREMIXED 0 EACH IV SCH ×2 (01:16→23:26)
[2017-10-03] MEDS: IPRATROPIUM BROMIDE 0.5 MG/2.5 ML NEBU NEB SCH ×4 (01:20→19:19)
[2017-10-03] MEDS: ALBUTEROL SULFATE 2.5 MG/3 ML NEBU NEB SCH ×4 (01:20→19:19)
[2017-10-03 04:24] VITALS: BP 99/60
[2017-10-03] MEDS: PANTOPRAZOLE SODIUM 40 MG TABLET.DR PO SCH (06:11)
[2017-10-03 06:28] LABS: ABG BASE EXCESS 11.9 mmol/L; ABG HCO3 40.6 mmol/L; ABG PCO2 76.9 mmHg (35.0-45.0); ABG PO2 76.2 mmHg (75.0-100.0); ABG SITE RIGHT BRACHIAL; ABG TOTAL HEMOGLOBIN 11.9 G/dL (12.0-16.0); COHb 1.8 % (0.5-1.5); MetHb 0.3 % (0.0-1.5); O2Hb 91.6 % (94.0-97.0); VENT MODE Nasal Cannula
[2017-10-03 06:41] LABS: BASOPHILS # (AUTO) 0.1 K/uL (0.0-8.0); BASOPHILS % (AUTO) 1.1 % (0.0-2.0); EOSINOPHILS # (AUTO) 0.4 K/uL (0.0-0.7); EOSINOPHILS % (AUTO) 4.4 % (0.0-7.0); HEMOGLOBIN 11.5 g/dL (10.9-14.3); LYMPHOCYTES # (AUTO) 0.7 K/uL (20.0-40.0); LYMPHOCYTES % (AUTO) 8.3 % (20.5-51.5); MEAN CORPUSCULAR HEMOGLOBIN 26.7 uug (24.7-32.8); MEAN CORPUSCULAR HGB CONC 33 g/dL (32.3-35.6); MONOCYTES # (AUTO) 0.6 K/uL (2.0-10.0); MONOCYTES % (AUTO) 7.2 % (0.0-11.0); NEUTROPHILS # (AUTO) 6.3 K/uL (1.8-8.9); PLATELET COUNT (AUTO) 298 K/uL (179-408); RED BLOOD CELL COUNT(AUTO) 4.32 MIL/uL (3.63-4.92)
[2017-10-03 06:52] LABS: ALANINE AMINOTRANSFERASE 11 U/L (14-59); ALKALINE PHOSPHATASE 80 U/L (50-136); ASPARTATE AMINOTRANSFERASE 16 U/L (15-37); BILIRUBIN,TOTAL 0.4 mg/dL (0.2-1.0); CHLORIDE 100 mmol/L (98-107); CREATININE 0.7 mg/dL (0.6-1.3); GLUCOSE 95 mg/dL (74-106); MAGNESIUM 1.9 mg/dL (1.8-2.4); PHOSPHOROUS 3.7 mg/dL (2.5-4.9); POTASSIUM 3.5 mmol/L (3.5-5.1); TOTAL PROTEIN, SERUM 6.5 g/dL (6.4-8.2); UREA NITROGEN, BLOOD 10 mg/dL (7-18)
[2017-10-03 06:55] LABS: CARBON DIOXIDE 41 mmol/L (21-32)
[2017-10-03] MEDS: PROTEIN SUPPLEMENT (PROSTAT) 30 ML LIQUID PO SCH (08:06)
[2017-10-03] MEDS ORDERED: BUMETANIDE INJ 3 MG in IV DEXTROSE 5% 38 ML IV ONE (09:00)
[2017-10-03] MEDS: ACETAMINOPHEN 325 MG TABLET PO SCH ×5 (09:00→21:06)
[2017-10-03] MEDS: ZINC SULFATE 220 MG CAPSULE PO SCH (09:09)
[2017-10-03] MEDS: MULTIVIT, IRON, MIN NO. 8, FA TABLET PO SCH (09:09)
[2017-10-03] MEDS: LEVETIRACETAM 500 MG TABLET PO SCH ×2 (09:09→21:06)
[2017-10-03] MEDS: ASCORBIC ACID 500 MG TABLET PO SCH (09:09)
[2017-10-03] MEDS: ACIDOPHILUS/BULGARICUS CHEW TAB PO SCH ×2 (09:09→17:38)
[2017-10-03] MEDS: DOCUSATE SODIUM 100 MG CAPSULE PO SCH (09:09)
[2017-10-03] MEDS: DIGOXIN 125 MCG TABLET PO SCH (09:13)
[2017-10-03] MEDS: Z GUARD REMEDY PASTE 57 GM TUBE TOP SCH ×2 (09:16→21:09)
[2017-10-03] MEDS: CLOTRIMAZOLE 1% CREAM 30 GM TUBE TOP SCH ×2 (09:16→21:06)
[2017-10-03 11:34] VITALS: BP 99/54
[2017-10-03 17:00] VITALS: BP 104/56
[2017-10-03] MEDS: RIVAROXABAN 15 MG TABLET PO SCH (17:38)
[2017-10-03 20:19] VITALS: BP_SYST 103; BP_DIAS 148; BP_DIAS 48
[2017-10-03] MEDS: MUPIROCIN 2% OINT 22 GM TUBE NS SCH (21:12)
[2017-10-03] MEDS: HYDROCODONE/APAP 5-325MG TABLET PO PRN (21:52)
[2017-10-04] VITALS: BP 105/60
[2017-10-04] MEDS: ALBUTEROL SULFATE 2.5 MG/3 ML NEBU NEB SCH ×4 (01:00→19:18)
[2017-10-04] MEDS: IPRATROPIUM BROMIDE 0.5 MG/2.5 ML NEBU NEB SCH ×4 (01:00→19:18)
[2017-10-04 04:00] VITALS: BP 110/48
[2017-10-04] MEDS: PANTOPRAZOLE SODIUM 40 MG TABLET.DR PO SCH (05:54)
[2017-10-04] MEDS: MEROPENEM 0.5 G in IV NORMAL SALINE 50 ML IV SCH ×3 (05:54→22:26)
[2017-10-04 06:12] LABS: BASOPHILS % (AUTO) 0.2 % (0.0-2.0); EOSINOPHILS # (AUTO) 0.4 K/uL (0.0-0.7); EOSINOPHILS % (AUTO) 4.2 % (0.0-7.0); HEMATOCRIT 36.2 % (31.2-41.9); LYMPHOCYTES % (AUTO) 10.2 % (20.5-51.5); MEAN CORPUSCULAR HEMOGLOBIN 26.5 uug (24.7-32.8); MEAN CORPUSCULAR HGB CONC 33 g/dL (32.3-35.6); MONOCYTES # (AUTO) 0.7 K/uL (2.0-10.0); MONOCYTES % (AUTO) 7.1 % (0.0-11.0); NEUTROPHILS # (AUTO) 7.5 K/uL (1.8-8.9); NEUTROPHILS % (AUTO) 78.3 % (38.5-71.5); PLATELET COUNT (AUTO) 324 K/uL (179-408); RED BLOOD CELL COUNT(AUTO) 4.52 MIL/uL (3.63-4.92); WHITE BLOOD COUNT (AUTO) 9.6 K/uL (3.8-11.8)
[2017-10-04 06:25] LABS: ALANINE AMINOTRANSFERASE 10 U/L (14-59); ALKALINE PHOSPHATASE 89 U/L (50-136); ASPARTATE AMINOTRANSFERASE 16 U/L (15-37); BILIRUBIN,TOTAL 0.4 mg/dL (0.2-1.0); CARBON DIOXIDE 39 mmol/L (21-32); CHLORIDE 94 mmol/L (98-107); CREATININE 0.7 mg/dL (0.6-1.3); GLUCOSE 106 mg/dL (74-106); MAGNESIUM 1.7 mg/dL (1.8-2.4); PHOSPHOROUS 2.5 mg/dL (2.5-4.9); POTASSIUM 3.2 mmol/L (3.5-5.1); TOTAL PROTEIN, SERUM 6.5 g/dL (6.4-8.2); UREA NITROGEN, BLOOD 11 mg/dL (7-18)
[2017-10-04] MEDS: PROTEIN SUPPLEMENT (PROSTAT) 30 ML LIQUID PO SCH (08:25)
[2017-10-04] MEDS ORDERED: POTASSIUM CHLORIDE 20 MEQ TAB.PRT.SR PO ONE (08:30)
[2017-10-04] MEDS ORDERED: MAGNESIUM SULFATE/D5W 100 ML IV SCH (08:30)
[2017-10-04] MEDS: DIGOXIN 125 MCG TABLET PO SCH (08:42)
[2017-10-04] MEDS: ASCORBIC ACID 500 MG TABLET PO SCH (08:42)
[2017-10-04] MEDS: ZINC SULFATE 220 MG CAPSULE PO SCH (08:42)
[2017-10-04] MEDS: ACETAMINOPHEN 325 MG TABLET PO SCH ×2 (08:42→21:09)
[2017-10-04] MEDS: MULTIVIT, IRON, MIN NO. 8, FA TABLET PO SCH (08:42)
[2017-10-04] MEDS: LEVETIRACETAM 500 MG TABLET PO SCH ×2 (08:42→21:08)
[2017-10-04] MEDS: DOCUSATE SODIUM 100 MG CAPSULE PO SCH (08:42)
[2017-10-04] MEDS: ACIDOPHILUS/BULGARICUS CHEW TAB PO SCH ×2 (08:42→17:21)
[2017-10-04] MEDS: CLOTRIMAZOLE 1% CREAM 30 GM TUBE TOP SCH ×2 (08:43→21:10)
[2017-10-04] MEDS: MUPIROCIN 2% OINT 22 GM TUBE NS SCH ×2 (08:43→21:09)
[2017-10-04] MEDS: Z GUARD REMEDY PASTE 57 GM TUBE TOP SCH ×2 (08:43→21:09)
[2017-10-04] MEDS ORDERED: ACETAMINOPHEN 325 MG TABLET PO PRN (09:15)
[2017-10-04 11:39] VITALS: BP 124/56
[2017-10-04] MEDS ORDERED: MAG HYDROX/AL HYDROX/SIMETH 30 ML LIQUID UDC PO STA (12:02)
[2017-10-04 15:37] VITALS: BP 109/52
[2017-10-04] MEDS ORDERED: QUETIAPINE FUMARATE 25 MG TABLET PO PRN (16:45)
[2017-10-04] MEDS: RIVAROXABAN 15 MG TABLET PO SCH (17:22)
[2017-10-04 20:00] VITALS: BP 133/54
[2017-10-05] VITALS: BP 121/61
[2017-10-05] MEDS: VANCOMYCIN IV 1 G in PREMIXED 0 EACH IV SCH ×2 (00:06→22:03)
[2017-10-05] MEDS: HYDROCODONE/APAP 5-325MG TABLET PO PRN ×2 (00:14→18:20)
[2017-10-05] MEDS: ALBUTEROL SULFATE 2.5 MG/3 ML NEBU NEB SCH ×4 (00:36→19:08)
[2017-10-05] MEDS: IPRATROPIUM BROMIDE 0.5 MG/2.5 ML NEBU NEB SCH ×4 (00:36→19:08)
[2017-10-05 04:00] VITALS: BP 111/52
[2017-10-05] MEDS: MEROPENEM 0.5 G in IV NORMAL SALINE 50 ML IV SCH ×3 (05:16→21:00)
[2017-10-05] MEDS: PANTOPRAZOLE SODIUM 40 MG TABLET.DR PO SCH (05:37)
[2017-10-05 06:47] LABS: BASOPHILS # (AUTO) 0.1 K/uL (0.0-8.0); BASOPHILS % (AUTO) 1.3 % (0.0-2.0); EOSINOPHILS # (AUTO) 0.4 K/uL (0.0-0.7); EOSINOPHILS % (AUTO) 4.5 % (0.0-7.0); HEMOGLOBIN 11.9 g/dL (10.9-14.3); LYMPHOCYTES # (AUTO) 1.3 K/uL (20.0-40.0); LYMPHOCYTES % (AUTO) 15.1 % (20.5-51.5); MEAN CORPUSCULAR HEMOGLOBIN 26.9 uug (24.7-32.8); MEAN CORPUSCULAR HGB CONC 33 g/dL (32.3-35.6); MEAN CORPUSCULAR VOLUME 81.5 fL (75.5-95.3); MONOCYTES # (AUTO) 0.6 K/uL (2.0-10.0); NEUTROPHILS # (AUTO) 6.1 K/uL (1.8-8.9); NEUTROPHILS % (AUTO) 72.1 % (38.5-71.5); RED BLOOD CELL COUNT(AUTO) 4.42 MIL/uL (3.63-4.92); WHITE BLOOD COUNT (AUTO) 8.5 K/uL (3.8-11.8)
[2017-10-05 07:01] LABS: ALANINE AMINOTRANSFERASE < 6 U/L (14-59); ALKALINE PHOSPHATASE 90 U/L (50-136); ASPARTATE AMINOTRANSFERASE 16 U/L (15-37); BILIRUBIN,TOTAL 0.3 mg/dL (0.2-1.0); CHLORIDE 95 mmol/L (98-107); CREATININE 0.7 mg/dL (0.6-1.3); GLUCOSE 104 mg/dL (74-106); POTASSIUM 3.8 mmol/L (3.5-5.1); TOTAL PROTEIN, SERUM 6.4 g/dL (6.4-8.2); UREA NITROGEN, BLOOD 12 mg/dL (7-18)
[2017-10-05 07:02] LABS: PLATELET COUNT (AUTO) 188 K/uL (179-408)
[2017-10-05 07:05] LABS: CARBON DIOXIDE 41 mmol/L (21-32)
[2017-10-05] MEDS: LEVETIRACETAM 500 MG TABLET PO SCH ×2 (08:39→20:59)
[2017-10-05] MEDS: PROTEIN SUPPLEMENT (PROSTAT) 30 ML LIQUID PO SCH (08:39)
[2017-10-05] MEDS: ACETAMINOPHEN 325 MG TABLET PO SCH ×2 (08:39→20:59)
[2017-10-05] MEDS: DOCUSATE SODIUM 100 MG CAPSULE PO SCH (08:39)
[2017-10-05] MEDS: ASCORBIC ACID 500 MG TABLET PO SCH (08:39)
[2017-10-05] MEDS: ZINC SULFATE 220 MG CAPSULE PO SCH (08:39)
[2017-10-05] MEDS: CLOTRIMAZOLE 1% CREAM 30 GM TUBE TOP SCH ×2 (08:40→20:59)
[2017-10-05] MEDS: DIGOXIN 125 MCG TABLET PO SCH (08:40)
[2017-10-05] MEDS: MULTIVIT, IRON, MIN NO. 8, FA TABLET PO SCH (08:40)
[2017-10-05] MEDS: ACIDOPHILUS/BULGARICUS CHEW TAB PO SCH ×2 (08:40→18:12)
[2017-10-05] MEDS: MUPIROCIN 2% OINT 22 GM TUBE NS SCH ×2 (08:40→21:00)
[2017-10-05] MEDS: Z GUARD REMEDY PASTE 57 GM TUBE TOP SCH ×2 (08:41→20:59)
[2017-10-05 11:24] VITALS: BP 107/50
[2017-10-05] MEDS ORDERED: POTASSIUM CHLORIDE 50 ML IV SCH (11:30)
[2017-10-05] MEDS: ACETAzolamide SODIUM 500 MG VIAL IV SCH (12:12)
[2017-10-05 15:24] VITALS: BP 97/44
[2017-10-05] MEDS: POTASSIUM CHLORIDE 10 MEQ, LIDOCAINE-MPF 1% 1 ML in IV DEXTROSE 5% 100 ML IV SCH ×2 (16:30→17:15)
[2017-10-05] MEDS: RIVAROXABAN 15 MG TABLET PO SCH (18:13)
[2017-10-05 20:19] VITALS: BP 113/52
[2017-10-06 00:25] VITALS: BP 109/55
[2017-10-06] MEDS: ALBUTEROL SULFATE 2.5 MG/3 ML NEBU NEB SCH ×4 (01:06→19:38)
[2017-10-06] MEDS: IPRATROPIUM BROMIDE 0.5 MG/2.5 ML NEBU NEB SCH ×4 (01:06→19:38)
[2017-10-06 04:00] VITALS: BP 99/54
[2017-10-06] MEDS: PANTOPRAZOLE SODIUM 40 MG TABLET.DR PO SCH (06:16)
[2017-10-06] MEDS: MEROPENEM 0.5 G in IV NORMAL SALINE 50 ML IV SCH ×3 (06:17→21:11)
[2017-10-06 07:27] LABS: BASOPHILS # (AUTO) 0.1 K/uL (0.0-8.0); BASOPHILS % (AUTO) 1.3 % (0.0-2.0); EOSINOPHILS # (AUTO) 0.4 K/uL (0.0-0.7); EOSINOPHILS % (AUTO) 3.6 % (0.0-7.0); HEMATOCRIT 32.8 % (31.2-41.9); HEMOGLOBIN 10.6 g/dL (10.9-14.3); LYMPHOCYTES # (AUTO) 1.4 K/uL (20.0-40.0); LYMPHOCYTES % (AUTO) 13.9 % (20.5-51.5); MEAN CORPUSCULAR HEMOGLOBIN 26.5 uug (24.7-32.8); MEAN CORPUSCULAR HGB CONC 32 g/dL (32.3-35.6); MEAN CORPUSCULAR VOLUME 82.1 fL (75.5-95.3); MONOCYTES # (AUTO) 0.8 K/uL (2.0-10.0); MONOCYTES % (AUTO) 7.6 % (0.0-11.0); NEUTROPHILS # (AUTO) 7.5 K/uL (1.8-8.9); NEUTROPHILS % (AUTO) 73.6 % (38.5-71.5); WHITE BLOOD COUNT (AUTO) 10.3 K/uL (3.8-11.8)
[2017-10-06 07:33] LABS: PLATELET COUNT (AUTO) 248 K/uL (179-408)
[2017-10-06 07:34] LABS: CHLORIDE 97 mmol/L (98-107); CREATININE 0.7 mg/dL (0.6-1.3); GLUCOSE 89 mg/dL (74-106); MAGNESIUM 2.1 mg/dL (1.8-2.4); PHOSPHOROUS 3.7 mg/dL (2.5-4.9); POTASSIUM 3.8 mmol/L (3.5-5.1); UREA NITROGEN, BLOOD 14 mg/dL (7-18)
[2017-10-06 07:43] LABS: CARBON DIOXIDE 41 mmol/L (21-32)
[2017-10-06 08:26] LABS: BAND % (MANUAL) 1 % (0-10); BASOPHILS % (MANUAL) 2 % (0-2); EOSINOPHILS % (MANUAL) 2 % (0-8); LYMPHOCYTES % (MANUAL) 10 % (20-40); MONOCYTES % (MANUAL) 8 % (2-10); NEUTROPHILS % (MANUAL) 77 % (42-75)
[2017-10-06] MEDS: ACETAzolamide SODIUM 500 MG VIAL IV SCH (08:41)
[2017-10-06] MEDS: LEVETIRACETAM 500 MG TABLET PO SCH ×2 (08:41→20:07)
[2017-10-06] MEDS: ACIDOPHILUS/BULGARICUS CHEW TAB PO SCH ×2 (08:42→16:56)
[2017-10-06] MEDS: ZINC SULFATE 220 MG CAPSULE PO SCH (08:42)
[2017-10-06] MEDS: ACETAMINOPHEN 325 MG TABLET PO SCH ×2 (08:42→20:07)
[2017-10-06] MEDS: DIGOXIN 125 MCG TABLET PO SCH (08:42)
[2017-10-06] MEDS: MULTIVIT, IRON, MIN NO. 8, FA TABLET PO SCH (08:42)
[2017-10-06] MEDS: ASCORBIC ACID 500 MG TABLET PO SCH (08:42)
[2017-10-06] MEDS: MUPIROCIN 2% OINT 22 GM TUBE NS SCH ×2 (08:43→20:08)
[2017-10-06] MEDS: Z GUARD REMEDY PASTE 57 GM TUBE TOP SCH ×2 (08:44→20:08)
[2017-10-06] MEDS: CLOTRIMAZOLE 1% CREAM 30 GM TUBE TOP SCH ×2 (08:44→20:08)
[2017-10-06] MEDS: PROTEIN SUPPLEMENT (PROSTAT) 30 ML LIQUID PO SCH (08:46)
[2017-10-06] MEDS: DOCUSATE SODIUM 100 MG CAPSULE PO SCH (08:52)
[2017-10-06] MEDS: POTASSIUM CHLORIDE 10 MEQ, LIDOCAINE-MPF 1% 1 ML in IV DEXTROSE 5% 100 ML IV SCH ×2 (11:11→12:13)
[2017-10-06 11:46] VITALS: BP 103/45
[2017-10-06 15:12] VITALS: BP 103/45
[2017-10-06] MEDS: RIVAROXABAN 15 MG TABLET PO SCH (16:57)
[2017-10-06] MEDS: HYDROCODONE/APAP 5-325MG TABLET PO PRN (18:12)
[2017-10-06 20:00] VITALS: BP 125/47
[2017-10-07 00:03] VITALS: BP 127/56
[2017-10-07] MEDS: ALBUTEROL SULFATE 2.5 MG/3 ML NEBU NEB SCH ×3 (01:03→13:43)
[2017-10-07] MEDS: IPRATROPIUM BROMIDE 0.5 MG/2.5 ML NEBU NEB SCH ×3 (01:03→13:43)
[2017-10-07] MEDS: VANCOMYCIN IV 1 G in PREMIXED 0 EACH IV SCH (01:22)
[2017-10-07] MEDS: MEROPENEM 0.5 G in IV NORMAL SALINE 50 ML IV SCH ×2 (05:08→13:30)
[2017-10-07 05:16] VITALS: BP 114/48
[2017-10-07] MEDS: PANTOPRAZOLE SODIUM 40 MG TABLET.DR PO SCH (06:18)
[2017-10-07 06:55] LABS: CARBON DIOXIDE 36 mmol/L (21-32); CHLORIDE 100 mmol/L (98-107); CREATININE 0.6 mg/dL (0.6-1.3); GLUCOSE 100 mg/dL (74-106); MAGNESIUM 1.9 mg/dL (1.8-2.4); PHOSPHOROUS 3.3 mg/dL (2.5-4.9); UREA NITROGEN, BLOOD 16 mg/dL (7-18)
[2017-10-07 06:59] LABS: BASOPHILS # (AUTO) 0.1 K/uL (0.0-8.0); EOSINOPHILS # (AUTO) 0.4 K/uL (0.0-0.7); EOSINOPHILS % (AUTO) 3.6 % (0.0-7.0); HEMATOCRIT 33.7 % (31.2-41.9); HEMOGLOBIN 10.9 g/dL (10.9-14.3); LYMPHOCYTES # (AUTO) 1.4 K/uL (20.0-40.0); MEAN CORPUSCULAR HEMOGLOBIN 26.4 uug (24.7-32.8); MEAN CORPUSCULAR HGB CONC 32 g/dL (32.3-35.6); MEAN CORPUSCULAR VOLUME 81.9 fL (75.5-95.3); MONOCYTES # (AUTO) 0.7 K/uL (2.0-10.0); MONOCYTES % (AUTO) 7.4 % (0.0-11.0); NEUTROPHILS # (AUTO) 7.5 K/uL (1.8-8.9); PLATELET COUNT (AUTO) 265 K/uL (179-408); RED BLOOD CELL COUNT(AUTO) 4.11 MIL/uL (3.63-4.92); WHITE BLOOD COUNT (AUTO) 10.1 K/uL (3.8-11.8)
[2017-10-07] MEDS: ACETAzolamide SODIUM 500 MG VIAL IV SCH (08:17)
[2017-10-07] MEDS: DOCUSATE SODIUM 100 MG CAPSULE PO SCH (08:18)
[2017-10-07] MEDS: ASCORBIC ACID 500 MG TABLET PO SCH (08:18)
[2017-10-07] MEDS: MULTIVIT, IRON, MIN NO. 8, FA TABLET PO SCH (08:18)
[2017-10-07] MEDS: LEVETIRACETAM 500 MG TABLET PO SCH (08:18)
[2017-10-07] MEDS: ZINC SULFATE 220 MG CAPSULE PO SCH (08:18)
[2017-10-07] MEDS: DIGOXIN 125 MCG TABLET PO SCH (08:18)
[2017-10-07] MEDS: ACIDOPHILUS/BULGARICUS CHEW TAB PO SCH (08:18)
[2017-10-07] MEDS: ACETAMINOPHEN 325 MG TABLET PO SCH (08:18)
[2017-10-07] MEDS: CLOTRIMAZOLE 1% CREAM 30 GM TUBE TOP SCH (08:19)
[2017-10-07] MEDS: Z GUARD REMEDY PASTE 57 GM TUBE TOP SCH (08:19)
[2017-10-07] MEDS: MUPIROCIN 2% OINT 22 GM TUBE NS SCH (08:20)
[2017-10-07] MEDS: PROTEIN SUPPLEMENT (PROSTAT) 30 ML LIQUID PO SCH (08:23)
[2017-10-07 11:04] VITALS: BP 109/39
[2017-10-07] MEDS ORDERED: MUPI22OI2 NS (11:31)
[2017-10-07] MEDS ORDERED: RXVAN XX (11:31)
[2017-10-07] MEDS ORDERED: CLOT30CR24 TOP (11:31)
[2017-10-07] MEDS ORDERED: QUET25TA PO (11:31)
[2017-10-07 15:47] VITALS: BP 119/39
== END 2017-10-07 15:50 | DRG 871 ==
LOC: ER 19:29 → TELE 22:00
PROVIDERS: ADMIT Internal Medicine; ATTEND Internal Medicine
DX: A41.9 Sepsis, unspecified organism (principal); J18.9 Pneumonia, unspecified organism; J96.21 Acute and chronic respiratory failure with hypoxia; I50.33 Acute on chronic diastolic (congestive) heart failure; E87.3 Alkalosis; J44.0 Chronic obstructive pulmonary disease with (acute) lower respiratory infection; I13.0 Hypertensive heart and chronic kidney disease with heart failure and stage 1 through stage 4 chronic kidney disease, or unspecified chronic kidney disease; I48.91 Unspecified atrial fibrillation; J96.22 Acute and chronic respiratory failure with hypercapnia; N39.0 Urinary tract infection, site not specified; L89.621 Pressure ulcer of left heel, stage 1; L89.611 Pressure ulcer of right heel, stage 1; L89.899 Pressure ulcer of other site, unspecified stage; G40.909 Epilepsy, unspecified, not intractable, without status epilepticus; B96.4 Proteus (mirabilis) (morganii) as the cause of diseases classified elsewhere; Z22.322 Carrier or suspected carrier of Methicillin resistant Staphylococcus aureus; Z88.6 Allergy status to analgesic agent; I25.10 Atherosclerotic heart disease of native coronary artery without angina pectoris; Z95.1 Presence of aortocoronary bypass graft; E78.5 Hyperlipidemia, unspecified; K21.9 Gastro-esophageal reflux disease without esophagitis; Z87.891 Personal history of nicotine dependence; Z87.01 Personal history of pneumonia (recurrent); Z80.1 Family history of malignant neoplasm of trachea, bronchus and lung; Z79.899 Other long term (current) drug therapy; Z80.0 Family history of malignant neoplasm of digestive organs; N18.9 Chronic kidney disease, unspecified; Z79.01 Long term (current) use of anticoagulants; Z88.5 Allergy status to narcotic agent; M21.619 Bunion of unspecified foot; M20.42 Other hammer toe(s) (acquired), left foot; M20.41 Other hammer toe(s) (acquired), right foot; F03.90 Unspecified dementia, unspecified severity, without behavioral disturbance, psychotic disturbance, mood disturbance, and anxiety; D64.9 Anemia, unspecified; F41.9 Anxiety disorder, unspecified
CPT/HCPCS: 36415; 36600; 70030-TC; 71045; 83605; 83735; 84100; 85025; 87040; 87077; 87086; 87400; 93005; 94640; 94664; A4663; J0456; J1120; J1940; J2001; J2185; J2543; J3370; J3475; J3480; J3490; J3590; J7040; J7060; Q0162